=== PATIENT | female | born 1955 | race Caucasian/White ===

== ENCOUNTER → 2018-02-10 | Outpatient (CLI) | payer OTHER ==
[~2018-02-10] MED LIST: ADVAIR 500/501 EA INH; ALLEGRA ALLERG180 MG PO; ATORVASTATIN CA40 MG PO; BUMETANIDE1 MG PO; CALCIUM 600 +1 EACH PO; CEFUROXIME250 MG PO; CELEBREX200 MG PO; DOXYCYCLINE HY100 MG PO; FAMOTIDINE20 MG PO; FISH OIL 1,2001 EACH PO; FLONASE16 GM; GLIMEPIRIDE2 MG PO; HUMULIN N100 UNITS/ SQ; IOPAMIDOL 370 MG/ML 200 ML INFUS..BTL INJ ONE; IRBESARTAN-HCT1 EAC1 PO; IRBESARTAN300 MG PO; LEVOTHYROXINE88 MCG PO; LEXAPRO10 MG PO; METFORMIN HCL1000 MG PO; MONTELUKAST SOD10 MG PO; NEXIUM40 MG PO; NOVOLOG100 UNITS1 SQ; QVAR7.3 G1 INH; SODIUM CHLORIDE 0.9% 50ML 50 ML ONE; SULFAMETHOXAZO1 EAC1 PO; VERAPAMIL ER240 M1 PO; VICTOZA 3-0.6 MG/0.1 SQ; VITAMIN B-121000 MCG PO; VITAMIN D1000 UNI1 PO; XOLAIR150 MG SQ
[2018-02-10 08:51] LABS: BLOOD UREA NITROGEN 11 mg/dL (7-26); BUN/CREATININE RATIO 17 (6-25); CREATININE, SERUM 0.66 mg/dL (0.57-1.11); EST GLOMERULAR FILTRATION RATE > 60 ML/MIN (60-)
--- NOTE | 2018-02-10 15:07 | Diagnostic Imaging Report ---
History:Occlusion and stenosis, Comparison studies:None Technique: Axial images were obtained from the thoracic inlet. Coronal and sagittal images reconstructed from the axial data. Intravenous contrast: 100 cc of Omnipaque 300. Findings: Percentage of stenosis will be based on the NASCET criteria Aortic arch and major vessels: Patent. Nonstenotic atherosclerotic calcifications. Common origin of the brachiocephalic trunk and left common carotid artery.. Common carotid arteries: Nonstenotic atherosclerotic calcification at the bilateral common carotid arteries mid segments. Calcified and noncalcified atherosclerotic plaque at the left common carotid artery distal segment results in less than 30% stenosis. Right internal carotid artery: Patent. Calcified atherosclerotic plaque results in less than 30% stenosis at the bulb. Atherosclerotic calcifications of the carotid siphons with less than 10% stenosis Noncalcified plaque at the external carotid artery with less than 30% stenosis Left internal carotid artery: Patent. Calcified and noncalcified plaque at the bulb results in less than 30% stenosis. Atherosclerotic calcifications of the carotid siphons with less than 10% stenosis Noncalcified and calcified plaque at the origin of the external carotid artery with less than 30% stenosis. Right vertebral artery: Patent. Noncalcified plaque at the origin with less than 30% stenosis. Left vertebral artery: Patent. No abnormalities. Basilar artery: Patent. No abnormalities. Posterior cerebral arteries: Patent. No abnormalities. Anatomical variants: Acom: Patent . Pcoms: Not visualized. Vertebral arteries: Co-dominant. Facet and uncinate process hypertrophy at the mid cervical spine results in multilevel moderate foraminal narrowing without significant canal stenosis. Under pneumatization of the bilateral maxillary, ethmoid, frontal and left sphenoid sinuses with periosteal thickening secondary to chronic inflammation and functional endoscopic sinus surgery changes. IMPRESSION: Cervical CTA: 1. Atherosclerotic calcifications of the carotid and right vertebral arteries without hemodynamically significant stenosis. Intracranial CTA: 1. Atherosclerotic calcifications of the carotid siphons without hemodynamically significant stenosis. No other abnormality of the [place]. Signed by: DR Reynaldo Pastor M.D. on 02/10/2018 2:41 PM
== END ==
LOC: CT 07:57
PROVIDERS: ATTEND Psychiatry & Neurology Clinical Neurophysiology
DX: I65.23 Occlusion and stenosis of bilateral carotid arteries (principal)
CPT/HCPCS: 36415; 70496; 70498; 82565; 84520; Q9967

== ENCOUNTER 2018-05-30 11:06 | Inpatient (IN) | payer OTHER ==
[~2018-05-30] VITALS: Ht 157.5 cm; Wt 64.4 kg
[~2018-05-30 11:06] MED LIST changes: -IOPAMIDOL 370 MG/ML 200 ML INFUS..BTL INJ ONE; -SODIUM CHLORIDE 0.9% 50ML 50 ML ONE
--- OUTSIDE RECORDS SUMMARY | 2018-05-30 11:10 | XMS REPORT ---
[facility] Address Unknown Phone Unavailable Care Team Providers Care Automatic Seamer Name Role Phone HARRISON REYES Unavailable Unavailable Problems This patient has no known problems. Allergies, Adverse Reactions, Alerts This patient has no known allergies or adverse reactions. Medications This patient has no known medications. Results Test Description Test Time Test Comments Text Results Atomic Results Result Comments CTA NECK 2018-02-10 14:24:00 [place] [address] Patient Name: OLLIE IQBAL MR #: [id number] : 1955 Age/Sex: 62/F Req #: [id number] [facility] Physician: Ordered by: HARRISON REYES MD Report #: [id number] Location: CT Room/Bed: Procedure: [id number] CT/CTA NECK Exam Date: 02/10/18 Exam Time: 929 REPORT STATUS: Signed ADDENDUM #1 1. For optimization of of anatomic evaluation, multi-planar reconstructions, maximum intensity projections, and advanced 3D off-line post-processing was obtained and performed on a dedicated stand-alone workstation under the direct supervision of the interpreting physician. 2. Dose modulation, iterative reconstruction, and/or weight based adjustment of the mA/kV was utilized to reduce the radiation dose to as low as reasonably achievable. Signed by: DR Reynaldo Pastor M.D. on 03/17/2018 7:12 PM ORIGINAL REPORT History:Occlusion and stenosis, Comparison studies:None Technique: Axial images were obtained from the thoracic inlet. Coronal and sagittal images reconstructed from the axial data. Intravenous contrast: 100 cc of Omnipaque 300. Findings: Percentage of stenosis will be based on the NASCET criteria Aortic arch and major vessels: Patent. Nonstenotic atherosclerotic calcifications. Common origin of the brachiocephalic trunk and left common carotid artery.. Common carotid arteries: Nonstenotic atherosclerotic calcification at the bilateral common carotid arteries mid segments. Calcified and noncalcified atherosclerotic plaque at the left common carotid artery distal segment results in less than 30% stenosis. Right internal carotid artery: Patent. Calcified atherosclerotic plaque results in less than 30% stenosis at the bulb. Atherosclerotic calcifications of the carotid siphons with less than 10% stenosis Noncalcified plaque at the external carotid artery with less than 30% stenosis Left internal carotid artery: Patent. Calcified and noncalcified plaque at the bulb results in less than 30% stenosis. Atherosclerotic calcifications of the carotid siphons with less than 10% stenosis Noncalcified and calcified plaque at the origin of the external carotid artery with less than 30% stenosis. Right vertebral artery: Patent. Noncalcified plaque at the origin with less than 30% stenosis. Left vertebral artery: Patent. No abnormalities. Basilar artery: Patent. No abnormalities. Posterior cerebral arteries: Patent. No abnormalities. Anatomical variants: Acom: Patent . Pcoms: Not visualized. Vertebral arteries: Co-dominant. Facet and uncinate process hypertrophy at the mid cervical spine results in multilevel moderate foraminal narrowing without significant canal stenosis. Under pneumatization of the bilateral maxillary, ethmoid, frontal and left sphenoid sinuses with periosteal thickening secondary to chronic inflammation and functional endoscopic sinus surgery changes. IMPRESSION: Cervical CTA: 1. Atherosclerotic calcifications of the carotid and right vertebral arteries without hemodynamically significant stenosis. Intracranial CTA: 1. Atherosclerotic calcifications of the carotid siphons without hemodynamically significant stenosis. No other abnormality of the [place]. Signed by: DR Reynaldo Pastor M.D. on 02/10/2018 2:41 PM Dictated By: REYNALDO LAMBERT MD 191 Transcribed By: RA on 02/10/18 1441 COPY TO: HARRISON REYES MD CTA BRAIN 2018-02-10 14:24:00 [place] [address] Patient Name: OLLIE IQBAL MR #: [id number] : 1955 Age/Sex: 62/F Req #: [id number] Adm Physician: Ordered by: HARRISON REYES MD Report #: [id number] Location: CT Room/Bed: Procedure: [id number] CT/CTA BRAIN Exam Date: 02/10/18 Exam Time: 929 REPORT STATUS: Signed ADDENDUM #1 1. For optimization of of anatomic evaluation, multi-planar reconstructions, maximum intensity projections, and advanced 3D off-line post-processing was obtained and performed on a dedicated stand-alone workstation under the direct supervision of the interpreting physician. 2. Dose modulation, iterative reconstruction, and/or weight based adjustment of the mA/kV was utilized to reduce the radiation dose to as low as reasonably achievable. Signed by: DR Reynaldo Pastor M.D. on 03/17/2018 7:12 PM ORIGINAL REPORT History:Occlusion and stenosis, Comparison studies:None Technique: Axial images were obtained from the thoracic inlet. Coronal and sagittal images reconstructed from the axial data. Intravenous contrast: 100 cc of Omnipaque 300. Findings: Percentage of stenosis will be based on the NASCET criteria Aortic arch and major vessels: Patent. Nonstenotic atherosclerotic calcifications. Common origin of the brachiocephalic trunk and left common carotid artery.. Common carotid arteries: Nonstenotic atherosclerotic calcification at the bilateral common carotid arteries mid segments. Calcified and noncalcified atherosclerotic plaque at the left common carotid artery distal segment results in less than 30% stenosis. Right internal carotid artery: Patent. Calcified atherosclerotic plaque results in less than 30% stenosis at the bulb. Atherosclerotic calcifications of the carotid siphons with less than 10% stenosis Noncalcified plaque at the external carotid artery with less than 30% stenosis Left internal carotid artery: Patent. Calcified and noncalcified plaque at the bulb results in less than 30% stenosis. Atherosclerotic calcifications of the carotid siphons with less than 10% stenosis Noncalcified and calcified plaque at the origin of the external carotid artery with less than 30% stenosis. Right vertebral artery: Patent. Noncalcified plaque at the origin with less than 30% stenosis. Left vertebral artery: Patent. No abnormalities. Basilar artery: Patent. No abnormalities. Posterior cerebral arteries: Patent. No abnormalities. Anatomical variants: Acom: Patent . Pcoms: Not visualized. Vertebral arteries: Co-dominant. Facet and uncinate process hypertrophy at the mid cervical spine results in multilevel moderate foraminal narrowing without significant canal stenosis. Under pneumatization of the bilateral maxillary, ethmoid, frontal and left sphenoid sinuses with periosteal thickening secondary to chronic inflammation and functional endoscopic sinus surgery changes. IMPRESSION: Cervical CTA: 1. Atherosclerotic calcifications of the carotid and right vertebral arteries without hemodynamically significant stenosis. Intracranial CTA: 1. Atherosclerotic calcifications of the carotid siphons without hemodynamically significant stenosis. No other abnormality of the [place]. Signed by: DR Reynaldo Pastor M.D. on 02/10/2018 2:41 PM Dictated By: REYNALDO LAMBERT MD 1912 Transcribed By: RA on 02/10/18 1441 COPY TO: ERICHARRISON SILVA MD
--- OUTSIDE RECORDS SUMMARY | 2018-05-30 11:10 | XMS REPORT | Clinical Summary ---
Author Author [facility] Address Unknown Phone Unavailable Care Team Providers Care Curriculum Assistant Name Role Phone Dago Tapiaold Aiden PCP Allergies Not on File Medications Not on file Active Problems Not on file Social History Date Tobacco Use Types Packs/Day Years Used Never Assessed Sex Assigned at Date Recorded Not on file Industry Job Start Date Occupation Not on file Not on file Not on file Travel End Travel History Travel Start No recent travel history available. Last Filed Vital Signs Not on file Plan of Treatment Not on file Results Not on fileafter 05/29/2017 Insurance Payer Benefit Subscriber ID Type Phone Address Plan / Group [facility] PPO xxxxxxxxx PPO CARE POS CVCP ONLY [address] (Home) [place] [phone]
--- OUTSIDE RECORDS SUMMARY | 2018-05-30 11:10 | XMS REPORT | Continuity of Care Document ---
Author Author [facility] Organization Interface Address Unknown Phone Unavailable Problems Problem Status Onset Date Classification Date Reported Comments Source G93.2 - BENIGN INTRACRANIAL HYPERTENSI Active 11/23/2015 [facility] Medications Medication Details Route Status Patient Instructions Ordering Provider Order Date Source Allergies, Adverse Reactions, Alerts Substance Category Reaction Severity Reaction type Status Date Reported Comments Source Immunizations Immunization Date Given Site Status Last Updated Comments Source Results Order Name Results Value Reference Range Date Interpretation Comments Source Int Auditory Canal w/wo contrast MRI Int Auditory Canal w/wo contrast MRI EXAM: Int Auditory Canal w/wo contrast MRI DATE: 12/11/2017 3:16 PM CDT . ORDERING PHYSICIAN: Vinnie Vitale MD CLINICAL INDICATION: H90.5 Unspecified sensorineural hearing loss - H90.5 Unspecified sensorineural hearing loss; TECHNIQUE: Multisequence, multiplanar MRI of the brain with small [id number] images of the internal auditory canals obtained both prior to after the uneventful administration of 15 ml of Dotarem intravenous gadolinium. COMPARISON: 11/27/[address] FINDINGS: INTERNAL AUDITORY CANAL STUDY: There is no brainstem, cerebellar, or cerebellopontine angle mass lesion, mass effect, signal abnormality, or abnormal enhancement. The bilateral cranial nerve 7/8 complexes are normal. The fluid-filled structures of the inner ear including the cochlea, vestibule, and semicircular canals are normal in diameter and signal intensity. There is no abnormal enhancement. Incidentally imaged are normal cranial nerves V, IX, and X.The mastoid air cells are well developed and well aerated. BRAIN: BRAIN PARENCHYMA: There is no hemorrhage, mass lesion, extra axial collection, cerebral edema, or mass effect. Diffusion sequences are normal. There is mild generalized volume loss and chronic microvascular ischemia. There is no evidence of previous cortical ischemia or cortical abnormality otherwise. The cerebellar tonsils are above foramen magnum. There is a partial empty sella configuration. VENTRICLES/SULCI/CISTERNS: The ventricles are normal in size and configuration. The basal cisterns are patent. VISUALIZED VESSELS: Major intracranial flow voids are preserved. ORBITS, VISUALIZED PARANASAL SINUSES AND MASTOIDS: There is bilateral ethmoid mucosal thickening. The mastoid air cells are clear. No orbital pathology is seen. ENHANCEMENT: There is no abnormal enhancement. IMPRESSION: 1. Unremarkable magnetic resonance imaging of the internal auditory canals 2. Mild cerebral volume loss and chronic microvascular ischemia 3. Ethmoid sinus mucosal thickening 12/11/2017 - - Read by: Gregorio Russo MD Dictated Date/time: 12/11/17 18:55 Electronically Signed by: Gregorio Russo MD 12/11/17 19:00 FINAL REPORT BENITO Howe Abdomen complete w Pelvis US Abdomen complete w Pelvis US PROCEDURE: ABDOMEN ULTRASOUND CLINICAL INDICATION: R14.0. Abdominal distention. COMPARISON: None. TECHNIQUE: Grayscale and limited color sonographic evaluation of the abdomen was performed with standard technique. Static images are submitted. FINDINGS: LIVER: The visualized liver shows normal contour, size and morphology with normal echotexture. The maximal craniocaudad dimension of the liver measures approximately 16 cm. Hepatopedal flow is demonstrated in the main portal vein by spectral Doppler analysis. BILE DUCTS: The intrahepatic and extrahepatic bile ducts are not dilated with the visualized common bile duct measuring 0.38 cm. GALLBLADDER: There are no gallstones, gallbladder sludge, pericholecystic fluid or wall thickening. PANCREAS: The pancreas is partially obscured. The visualized pancreas is mildly prominent with likely diffuse fatty infiltration without additional demonstrable abnormality. There is no demonstrable pancreatic lesion, pancreatic ductal dilatation or peripancreatic fluid. SPLEEN: The spleen is unremarkable measuring 11.3 x 4.4 x 4.7 cm. KIDNEYS: There is normal renal contour and morphology with normal parenchymal echotexture. There is no hydronephrosis. The right kidney measures 10.7 x 4.6 x 4.5 cm. The left kidney measures 11.6 x 5.6 x 4.5 cm. AORTA AND INFERIOR VENA CAVA: Visualized portions appear unremarkable. ASCITES: There is no ascites. IMPRESSION: 1. The visualized pancreas is mildly prominent with likely diffuse fatty infiltration. 2. Otherwise unremarkable abdomen ultrasound. PROCEDURE: TRANSABDOMINAL PELVIS ULTRASOUND TECHNIQUE: Transabdominal ultrasound of the pelvis was performed with standard technique. Static images are submitted. FINDINGS: UTERUS: The uterus is anteflexed measuring 4.9 x 1.5 x 4.4 cm (length x AP x width). The maximal endometrial stripe thickness measures 0.1 cm. The patient is postmenopausal. There are uterine arcuate artery calcifications. There is no demonstrable uterine leiomyoma. The visualized portions of the cervix are unremarkable. OVARIES: The ovaries are not seen. There is no demonstrable adnexal mass. ADDITIONAL FINDINGS: The urinary bladder is distended and partially imaged without demonstrable abnormality. There is no demonstrable pelvic free fluid. IMPRESSION: 1. Uterine arcuate artery calcifications. 2. Nonvisualization of the ovaries. 3. Otherwise unremarkable transabdominal pelvis ultrasound. SL: 15 10/10/2016 - - Read by: Stephen Vaughn MD Dictated Date/time: 10/11/16 07:32 Electronically Signed by: Stephen Vaughn MD 10/11/16 07:47 FINAL REPORT IRVIN Lal Brain wo contrast CT Brain wo contrast CT EXAM: CT BRAIN WITHOUT CONTRAST INDICATION: R51 Headache COMPARISON: None TECHNIQUE: Routine axial CT images of the brain were obtained. DISCUSSION: No intracranial hemorrhage or mass effect. No acute infarction. No hydrocephalus. Microangiopathic changes and generalized parenchymal volume loss are evident. Calvarium is intact. Opacification of the bilateral maxillary sinuses. Opacification of a few anterior posterior ethmoidal air cells. Mastoid air cells are clear bilaterally. IMPRESSION: No acute intracranial abnormality. Microangiopathic changes and generalized parenchymal volume loss are present. Inflammatory paranasal sinus disease. 11/27/2015 - - Read by: Kyleigh Fairchild MD Dictated Date/time: 11/27/15 16:28 Electronically Signed by: Kyleigh Fairchild MD 11/27/15 16:31 FINAL REPORT [facility] Vital Signs Vital Sign Value Date Comments Source Encounters Location Location Details Encounter Type Encounter Number Reason For Visit Attending Provider ADM Date DC Date Status Source [facility] [place] [facility] [id number] Monty Hernandezton 11/27/2015 11/28/2015 IRVIN [facility] [place] [facility] [id number] Ethan Monroeon 10/10/2016 10/11/2016 BENITO BRYAN [facility] [place] [facility] [id number] Vinnie Vitale 12/11/2017 12/12/2017 IRVIN [place] Procedures Procedure Code Date Perfomer Comments Source
--- OUTSIDE RECORDS SUMMARY | 2018-05-30 11:10 | XMS REPORT | Summary of Care ---
Author Author [facility] Outpatient Imaging [facility] Outpatient Imaging [facility] Address Unknown Phone Unavailable Encounter HQ Lucindar_lynnpreet(ROBI) [id number] Date(s): 11/27/15 - 11/27/15 [facility] Outpatient Imaging [facility] [address] [facility], [address] [place], [place] [address] [phone] Discharge Disposition: Home Attending Physician: Monty Tapia MD Vital Signs No data available for this section Problem List No data available for this section Allergies, Adverse Reactions, Alerts No data available for this section Medications No data available for this section Results No data available for this section Immunizations No data available for this section Procedures No data available for this section Social History No data available for this section Assessment and Plan No data available for this section
--- OUTSIDE RECORDS SUMMARY | 2018-05-30 11:10 | XMS REPORT | Summary of Care ---
Author Author [facility] [place] Organization [facility] [place] Address Unknown Phone Unavailable Encounter HQ Encntr_alias(FIN) [id number] Date(s): 12/11/17 - 12/11/17 [facility] [place] [address] [place] [address]- [phone] Discharge Disposition: Home or Self Care Attending Physician: Vinnie Vitale MD Vital Signs No data available for [...]
--- OUTSIDE RECORDS SUMMARY | 2018-05-30 11:10 | XMS REPORT | Summary of Care ---
Author Author [facility] Outpatient Imaging [facility] [place] Address Unknown Phone Unavailable Encounter HQ Encntr_alias(FIN) [id number] Date(s): 10/10/16 - 10/10/16 [facility] Outpatient Imaging [place] [address] [place] [address], [address] [place], [place] [address]- [phone] Discharge Disposition: Home or Self Care Attending Physician: Ethan Sampson MD Vital Signs No data available for [...]
[2018-05-30 12:11] LABS: CLARITY,URINE CLEAR (CLEAR); COLOR,URINE YELLOW (YELLOW); LEUKOCYTE ESTERASE ,URINE NEGATIVE (NEGATIVE); NITRITE,URINE NEGATIVE (NEGATIVE); PROTEIN,URINE DIPSTICK NEGATIVE (NEGATIVE)
[2018-05-30 12:12] LABS: BILIRUBIN,URINE NEGATIVE (NEGATIVE); KETONES,URINE NEGATIVE (NEGATIVE); URINE UROBILINOGEN 0.2 mg/dL (0.2 - 1)
[2018-05-30 12:17] LABS: EPITHELIAL CELLS,URINE FEW /LPF; RBC,URINE 0-5 /HPF (0-5); WBC,URINE (MAN) 0-5 /HPF (0-5)
[2018-05-30] MEDS ORDERED: ACETAMINOPHEN 325 MG TAB PO ONE (12:30)
[2018-05-30] MEDS ORDERED: SODIUM CHLORIDE 0.9% 1000ML 1,000 ML IV SCH (12:30)
--- NOTE | 2018-05-30 12:36 | Diagnostic Imaging Report ---
EXAM: XR CHEST 2 VIEWS DATE: 05/30/2018 12:02 PM INDICATION: Sepsis/chills COMPARISON: None FINDINGS: Lines and Tubes: None Heart and Mediastinum: No acute cardiomediastinal findings. Lungs and Pleura: Minimal basilar opacities. Mild biapical scarring. Bones and Soft Tissues: No acute findings. IMPRESSION: 1. Basilar atelectasis versus pneumonia. Signed by: Dr. Juan Amado MD on 05/30/2018 12:33 PM
[2018-05-30] MEDS ORDERED: ACETAMINOPHEN 1000 MG/100 ML IV ONE (13:00)
[2018-05-30] MEDS: AZITHROMYCIN 500MG/NS 250 ML 250 ML IV SCH (13:00)
[2018-05-30 13:13] LABS: BASOPHILS % 0.2 % (0.0-1.0); EOSINOPHILS # (AUTO) 0.1 (0.0-0.4); EOSINOPHILS % 0.8 % (0.0-6.0); HEMATOCRIT 34.9 % (34.2-44.1); HEMOGLOBIN 10.8 g/dL (12.0-16.0); LYMPHOCYTES # (AUTO) 0.7 (1.0-3.2); LYMPHOCYTES % 6.1 % (18.0-39.1); MEAN CORPUSCULAR HEMOGLOBIN 28.6 pg (28-32); MEAN CORPUSCULAR HGB CONC 30.9 g/dL (31-35); MEAN CORPUSCULAR VOLUME 92.6 fL (81-99); MONOCYTES # (AUTO) 0.3 (0.2-0.8); MONOCYTES % 2.3 % (4.4-11.3); NEUTROPHILS # (AUTO) 10.5 (2.1-6.9); NEUTROPHILS % 89.9 % (38.7-80.0); PLATELET COUNT 216 x10e3/uL (140-360); RED BLOOD COUNT 3.77 x10e6/uL (3.6-5.1); RED CELL DISTRIBUTION WIDTH 15.3 % (11.7-14.4)
[2018-05-30 13:26] LABS: ALANINE AMINOTRANSFERASE 26 IU/L (0-55); ALBUMIN 3.6 g/dL (3.5-5.0); ALKALINE PHOSPHATASE 67 IU/L (40-150); ANION GAP 19.6 mmol/L (8-16); BLOOD UREA NITROGEN 14 mg/dL (7-26); BUN/CREATININE RATIO 19 (6-25); CALCIUM 9.5 mg/dL (8.4-10.2); CARBON DIOXIDE 18 mmol/L (22-29); CHLORIDE 102 mmol/L (98-107); CREATININE, SERUM 0.74 mg/dL (0.57-1.11); EST GLOMERULAR FILTRATION RATE > 60 ML/MIN (60-); GLUCOSE 201 mg/dL (74-118); POTASSIUM 4.6 mmol/L (3.5-5.1); SODIUM 135 mmol/L (136-145)
[2018-05-30 13:27] LABS: CREATINE KINASE 48 IU/L (29-168); MAGNESIUM 1.7 MG/DL (1.3-2.1)
[2018-05-30] MEDS ORDERED: SODIUM CHLORIDE 0.9% 1000ML 1,000 ML IV STA (13:36)
[2018-05-30 13:58] LABS: INR 0.92; PROTHROMBIN TIME 13.2 seconds (11.9-14.5)
[2018-05-30 13:59] LABS: PARTIAL THROMBOPLASTIN TIME 28.7 seconds (23.8-35.5)
[2018-05-30] MEDS ORDERED: VANCOMYCIN 1GM/NS 250 ML 250 ML IV ONE ×2 (14:15→19:00)
[2018-05-30] MEDS ORDERED: DEXTROSE 50% SYRINGE 50 ML IV PRN (14:15)
[2018-05-30] MEDS: ALBUTEROL SULF 0.083% NEB SOLN 3 ML NEB NEB SCH ×3 (14:18→23:25)
--- OUTSIDE RECORDS SUMMARY | 2018-05-30 14:31 | XMS REPORT | Clinical Summary ---
Author Author [facility] Address Unknown Phone Unavailable Care Team Providers Care Associate Partner Name Role Phone Dago Tapiaold Aiden PCP [...] ID Type Phone Address Plan / Group [facility] PPO xxxxxxxxx PPO CARE POS CVCP ONLY [address] (Home) [place] [phone]
[2018-05-30] MEDS: CEFEPIME HCL 2 GM VIAL IV SCH (14:52)
[2018-05-30] MEDS: SODIUM CHLORIDE 0.9% 1000ML 1,000 ML IV SCH ×2 (14:52→20:20)
[2018-05-30] MEDS: INSULIN LISPRO 100 UNIT/1 ML 3ML VIAL SQ SCH ×2 (16:30→21:00)
[2018-05-30 16:33] VITALS: BP 156/70
[2018-05-30 16:45] VITALS: BP 156/70
[2018-05-30 20:00] VITALS: BP 159/70
[2018-05-30 20:08] VITALS: BP 159/70
[2018-05-30] MEDS: METHYLPREDNISOLONE SOD SUCC 40 MG/ML VIAL IV SCH (20:09)
[2018-05-30] MEDS: IPRATROPIUM BROMIDE 0.02% 2.5 ML NEB NEB SCH ×2 (20:15→23:25)
[2018-05-30 21:40] LABS: CREATINE KINASE 41 IU/L (29-168)
[2018-05-31] VITALS (9 sets, daily range): BP systolic 145–184; BP diastolic 63–82
[2018-05-31] MEDS ORDERED: HYDRALAZINE HCL25 MG PO (00:44)
--- NOTE | 2018-05-31 00:44 | Consultation ---
DATE OF CONSULTATION: May 30, 2018 PULMONARY CONSULTATION REASON FOR CONSULTATION: Wheezing, chills and shortness of breath. HISTORY OF PRESENT ILLNESS: Ms. Blunt is a 62-year-old female. She has severe asthma and she is on Xolair as an outpatient. She sees an shale miner blasting Dr. Michell Ratliff. She reports that since early this morning, she started having severe chills which were not resolving, so she decided to come to the emergency room. Her grandson had some upper respiratory infection, which she thinks that she may have caught it. She was also having some symptoms of urinary tract infection. She was concerned that she may have urine infection as well. She denies any chest pain, nausea or vomiting. She has been wheezing since this morning. REVIEW OF SYSTEMS: GENERAL: Denies any fever. The patient was having chills. HEAD: Denies any head trauma. ENT: Denies any earache. CVS: Denies any chest pain. RESPIRATORY: Shortness of breath and wheezing. GI: Denies any nausea or vomiting. The rest of the review systems are negative except as in history of present illness. PAST MEDICAL HISTORY: Hypertension, diabetes and hyperlipidemia. PAST SURGICAL HISTORY: Unknown. FAMILY AND SOCIAL HISTORY: She does not smoke. She does not drink. She lives with her family. PHYSICAL EXAMINATION: VITAL SIGNS: Temperature 97.1, T-max of 101.6, pulse of 95, respiratory rate of 18, and O2 sat 97%. HEENT: Head atraumatic and normocephalic. NECK: Supple. CHEST: Wheezing bilaterally. HEART: S1, S2 audible. ABDOMEN: Soft, nontender and nondistended. EXTREMITIES: No clubbing, cyanosis or edema. NEUROLOGIC: Awake and alert. CHEST X-RAY: I have reviewed the images. It has possibly upper lobe pneumonia and maybe basilar opacities, but not very clear. LABORATORY DATA: Lactic acid was 35 in the emergency room, it came down to 11.2. Sodium 135, potassium 4.6, chloride 102, BUN 14, creatinine 0.74. Troponin was less [place] 0.001[place] [address], hemoglobin 10.8, and platelets 216. ASSESSMENT/PLAN: Ms. Blunt is a 62-year-old female with chills, fever of 101, and high lactic acid. CURRENT PROBLEMS: 1. Severe sepsis, source likely pneumonia. Urinalysis is negative. Blood cultures are pending. In the meantime, I will continue the patient on cefepime. She has received 1 dose of vancomycin. Agree with azithromycin as well. 2. Acute asthma exacerbation. The patient has history of severe asthma, on Xolair. I will start the patient on low-dose IV Solu-Medrol as the patient is wheezing. Continue the patient on nebulizer treatment. 3. Follow blood cultures. 4. Continue the patient on IV hydration for now because of sepsis. 5. Influenza was titer tested and it is negative. Thank you for this consult and report. Job#: [id number] JASPREET
[2018-05-31] MEDS: CEFEPIME HCL 2 GM VIAL IV SCH ×2 (02:15→15:03)
[2018-05-31] MEDS: ALBUTEROL SULF 0.083% NEB SOLN 3 ML NEB NEB SCH ×6 (03:00→23:05)
--- NOTE | 2018-05-31 06:06 | Diagnostic Imaging Report ---
EXAMINATION: CHEST SINGLE (PORTABLE) INDICATION: Pneumonia COMPARISON: 05/30/2018 FINDINGS: AP view TUBES and LINES: None. LUNGS: Lungs are well inflated. Stable minimal bibasilar opacities. There is no evidence of pulmonary edema. PLEURA: No pleural effusion or pneumothorax. HEART AND MEDIASTINUM: The cardiomediastinal silhouette is unremarkable. BONES AND SOFT TISSUES: No acute osseous lesion. Soft tissues are unremarkable. UPPER ABDOMEN: No free air under the diaphragm. IMPRESSION: Stable bibasilar opacities likely representing atelectasis. Developing pneumonia not excluded. Signed by: DR. Carlin Stuart MD on 05/31/2018 6:03 AM
[2018-05-31 06:15] LABS: BASOPHILS % 0.1 % (0.0-1.0); HEMATOCRIT 32.6 % (34.2-44.1); HEMOGLOBIN 10.1 g/dL (12.0-16.0); LYMPHOCYTES # (AUTO) 0.7 (1.0-3.2); LYMPHOCYTES % 7.1 % (18.0-39.1); MEAN CORPUSCULAR HEMOGLOBIN 29.2 pg (28-32); MEAN CORPUSCULAR VOLUME 94.2 fL (81-99); MONOCYTES # (AUTO) 0.2 (0.2-0.8); MONOCYTES % 1.5 % (4.4-11.3); NEUTROPHILS # (AUTO) 9.4 (2.1-6.9); NEUTROPHILS % 90.6 % (38.7-80.0); PLATELET COUNT 206 x10e3/uL (140-360); RED BLOOD COUNT 3.46 x10e6/uL (3.6-5.1); RED CELL DISTRIBUTION WIDTH 15.3 % (11.7-14.4)
[2018-05-31 06:35] LABS: ALANINE AMINOTRANSFERASE 17 IU/L (0-55); ALBUMIN/GLOBULIN RATIO 0.8 (0.8-2.0); ALKALINE PHOSPHATASE 57 IU/L (40-150); ANION GAP 16.4 mmol/L (8-16); BLOOD UREA NITROGEN 13 mg/dL (7-26); BUN/CREATININE RATIO 22 (6-25); CALCIUM 9.5 mg/dL (8.4-10.2); CARBON DIOXIDE 18 mmol/L (22-29); CHLORIDE 107 mmol/L (98-107); CREATININE, SERUM 0.58 mg/dL (0.57-1.11); EST GLOMERULAR FILTRATION RATE > 60 ML/MIN (60-); GLUCOSE 152 mg/dL (74-118); POTASSIUM 4.4 mmol/L (3.5-5.1); SODIUM 137 mmol/L (136-145)
[2018-05-31 06:49] LABS: CREATINE KINASE 33 IU/L (29-168)
[2018-05-31] MEDS: INSULIN LISPRO 100 UNIT/1 ML 3ML VIAL SQ SCH ×4 (07:30→20:47)
[2018-05-31] MEDS: SODIUM CHLORIDE 0.9% 1000ML 1,000 ML IV SCH ×3 (07:35→21:15)
[2018-05-31] MEDS: IPRATROPIUM BROMIDE 0.02% 2.5 ML NEB NEB SCH ×4 (07:45→23:05)
[2018-05-31] MEDS ORDERED: GUAIFENESIN/CODEINE 10 ML CUP PO PRN (08:15)
[2018-05-31] MEDS ORDERED: [UNRECOGNIZED DRUG - OTHER] (08:54)
[2018-05-31] MEDS ORDERED: CETIRIZINE HCL10 MG PO (08:54)
[2018-05-31] MEDS ORDERED: FAMOTIDINE20 MG PO (08:54)
[2018-05-31] MEDS ORDERED: TOBRADEX EYE O3.5 GM OP (08:54)
[2018-05-31] MEDS ORDERED: invokana PO (08:54)
[2018-05-31] MEDS: LEVOTHYROXINE SODIUM 88 MCG TAB PO SCH (09:00)
[2018-05-31] MEDS ORDERED: ESCITALOPRAM OXALATE 10 MG TAB PO SCH (09:00)
[2018-05-31] MEDS: Liraglutide (Victoza 3-Pak) 1.8 MG SC SCH (09:00)
[2018-05-31] MEDS: HYDRALAZINE HCL 25 MG TAB PO SCH ×2 (09:01→17:44)
[2018-05-31] MEDS: FLUTICASONE PROPIONATE NASAL SPRAY NS SCH ×2 (09:01→17:44)
[2018-05-31] MEDS: METHYLPREDNISOLONE SOD SUCC 40 MG/ML VIAL IV SCH ×2 (09:43→20:46)
[2018-05-31] MEDS: AZITHROMYCIN 500MG/NS 250 ML 250 ML IV SCH (09:43)
[2018-05-31 15:57] LABS: ANION GAP 16.5 mmol/L (8-16); BLOOD UREA NITROGEN 18 mg/dL (7-26); BUN/CREATININE RATIO 24 (6-25); CALCIUM 9.7 mg/dL (8.4-10.2); CARBON DIOXIDE 17 mmol/L (22-29); CHLORIDE 106 mmol/L (98-107); CREATININE, SERUM 0.74 mg/dL (0.57-1.11); EST GLOMERULAR FILTRATION RATE > 60 ML/MIN (60-); GLUCOSE 340 mg/dL (74-118); POTASSIUM 4.5 mmol/L (3.5-5.1); SODIUM 135 mmol/L (136-145)
[2018-05-31 16:12] LABS: % IRON SATURATION 4 % (15-50); IRON 14 ug/dL (50-170); TOTAL IRON BINDING CAPACITY 385 ug/dL (261-478); TRANSFERRIN 275 mg/dL (180-382)
--- NOTE | 2018-05-31 18:22 | History and Physical ---
CLINICAL HISTORY: This is a 62-year-old white woman, a patient of Dr. Monty Tapia, is admitted via the emergency room because of shortness of breath. She normally follows with Dr. Vinicio Anthony, supervisor grips, at the [facility]. She has abnormal EKG, was scheduled to have echocardiogram as well as dobutamine stress test. For the past 10 years, she has been treated with Xolair, which she states has gradually improved her life. Apparently, she developed shortness of breath starting at age 27, blamed on cigarettes smoking from second-hand exposure. She had no childhood asthma history. Recently, her grandson had upper respiratory tract infection. She may have contracted similar infection from him. She was also concerned she may have urinary tract infection. She was admitted and treated with bronchodilators and antibiotics. Pulmonary consultation has been obtained with Dr. López. PAST MEDICAL HISTORY: Remarkable for hypertension, diabetes, and hyperlipidemia. PAST SURGICAL HISTORY: Deferred. FAMILY HISTORY: Noncontributory. 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 She denies smoking or drinking. REVIEW OF SYSTEMS: Noncontributory. PHYSICAL EXAMINATION VITAL SIGNS: Stable except for a temperature of 101.6. CARDIOVASCULAR: Jugular veins were not distended. S1 and S2 were regular. There are no appreciable murmurs. RESPIRATORY: Shows expiratory wheezes. ABDOMEN: Soft. Bowel sounds are present. EXTREMITIES: No cyanosis, clubbing, or edema. LABORATORY STUDIES: Possible upper lobe pneumonia. Blood tests are white count 11,000, hemoglobin 10.8, and platelet count 216,000. BUN is 14 and creatinine 0.74. EKG showed ST segment depression, T-wave inversion in the inferolateral leads. IMPRESSION 1. Pneumonia, possible sepsis. 2. Rule out urinary tract infection. 3. History of chronic obstructive pulmonary disease blamed on secondhand smoke. 4. Abnormal ECG, possibly related to hypertension, consider coronary artery disease. Apparently, the patient was unable to do a stress test in the past and a dobutamine stress test is being planned. Echocardiogram was also being planned. 5. Diabetes. 6. Hypertension. 7. Hyperlipidemia. 8. Anemia, hemoglobin of 10.1. RECOMMENDATIONS: Pulmonary consultation with Dr. López. Bronchodilator therapy and antibiotics. Consider echocardiogram or dobutamine stress test, although she can do all these with her own supervisor grips, Dr. Vinicio Anthony, at the [facility]. Job#: [id number] [place] cc:DR. MONTY LÓPEZ
[2018-05-31] MEDS: SALMETEROL/FLUTICASONE 500/50 INH SCH (20:30)
[2018-05-31] MEDS: IRBESARTAN 150 MG TAB PO SCH (20:46)
[2018-06-01] VITALS: BP 158/70
[2018-06-01] MEDS: ALBUTEROL SULF 0.083% NEB SOLN 3 ML NEB NEB SCH ×6 (03:05→23:52)
[2018-06-01] MEDS: CEFEPIME HCL 2 GM VIAL IV SCH (03:20)
[2018-06-01 04:00] VITALS: BP 137/60
[2018-06-01] MEDS: SODIUM CHLORIDE 0.9% 1000ML 1,000 ML IV SCH (05:28)
[2018-06-01] MEDS: LEVOTHYROXINE SODIUM 88 MCG TAB PO SCH (05:28)
[2018-06-01] MEDS: IPRATROPIUM BROMIDE 0.02% 2.5 ML NEB NEB SCH ×4 (08:20→23:52)
[2018-06-01] MEDS: SALMETEROL/FLUTICASONE 500/50 INH SCH ×2 (08:32→19:43)
[2018-06-01 08:55] VITALS: BP 177/75
[2018-06-01] MEDS ORDERED: PNEUMOCOCCAL VACCINE POLYVALENT 23 MCG/0.5 ML VIAL IM NR (09:00)
[2018-06-01] MEDS: INSULIN LISPRO 100 UNIT/1 ML 3ML VIAL SQ SCH ×4 (09:21→20:45)
[2018-06-01] MEDS: FLUTICASONE PROPIONATE NASAL SPRAY NS SCH ×2 (09:21→17:49)
[2018-06-01] MEDS: HEPARIN SOD (PORCINE) 5,000 UNIT/ML VIAL SC SCH ×2 (09:21→21:00)
[2018-06-01] MEDS: AZITHROMYCIN 500MG/NS 250 ML 250 ML IV SCH (09:21)
[2018-06-01] MEDS: HYDRALAZINE HCL 25 MG TAB PO SCH ×2 (09:23→17:51)
[2018-06-01] MEDS: IRON SUCROSE 100 MG in SODIUM CHLORIDE 0.9% 100 ML 100 ML IV SCH (09:23)
[2018-06-01] MEDS: Liraglutide (Victoza 3-Pak) 1.8 MG SC SCH (09:40)
[2018-06-01 12:15] VITALS: BP 160/70
[2018-06-01 15:49] VITALS: BP 135/61
[2018-06-01 20:08] VITALS: BP 138/68
[2018-06-01] MEDS: IRBESARTAN 150 MG TAB PO SCH (20:59)
[2018-06-02 00:30] VITALS: BP 148/65
[2018-06-02] MEDS: SODIUM CHLORIDE 0.9% 1000ML 1,000 ML IV SCH (01:10)
[2018-06-02] MEDS: ALBUTEROL SULF 0.083% NEB SOLN 3 ML NEB NEB SCH ×3 (03:40→11:20)
[2018-06-02 04:00] VITALS: BP 175/80
[2018-06-02] MEDS: LEVOTHYROXINE SODIUM 88 MCG TAB PO SCH (06:03)
[2018-06-02] MEDS: IPRATROPIUM BROMIDE 0.02% 2.5 ML NEB NEB SCH (07:13)
[2018-06-02] MEDS: SALMETEROL/FLUTICASONE 500/50 INH SCH (07:26)
[2018-06-02] MEDS: INSULIN LISPRO 100 UNIT/1 ML 3ML VIAL SQ SCH (07:30)
[2018-06-02 08:05] VITALS: BP 168/64
[2018-06-02] MEDS: AZITHROMYCIN 500MG/NS 250 ML 250 ML IV SCH (08:48)
[2018-06-02] MEDS: FLUTICASONE PROPIONATE NASAL SPRAY NS SCH (08:48)
[2018-06-02] MEDS: HYDRALAZINE HCL 25 MG TAB PO SCH (08:48)
[2018-06-02] MEDS: Liraglutide (Victoza 3-Pak) 1.8 MG SC SCH (08:51)
[2018-06-02] MEDS: HEPARIN SOD (PORCINE) 5,000 UNIT/ML VIAL SC SCH (08:51)
[2018-06-02] MEDS ORDERED: CEFUROXIME250 MG PO (09:28)
[2018-06-02] MEDS: IRON SUCROSE 100 MG in SODIUM CHLORIDE 0.9% 100 ML 100 ML IV SCH (10:00)
[2018-06-02 10:52] VITALS: BP 168/64
--- NOTE | 2018-06-02 11:32 | Cardiology Report ---
DATE OF STUDY: ECHOCARDIOGRAM ATTENDING PHYSICIAN: Dr. Monty Rivera M-MODE: Normal chamber and wall dimensions. Normal contractility. Normal mitral aortic valves. No pericardial effusion. SECTOR SCAN: Normal chamber sizes. Borderline left ventricular hypertrophy. Normal contractility. Moderate aortic sclerosis. Normal mitral and tricuspid valves. No pericardial effusion. CARDIAC DOPPLER STUDY WITH COLOR: Trace mitral regurgitation. No significant aortic stenosis. CONCLUSIONS 1. Borderline left ventricular hypertrophy with ejection fraction of approximately 55%. 2. Trace mitral regurgitation, probably not clinically significant. Job#: [id number] VAS cc:MONTY RIVERA MD
[2018-06-02 12:05] VITALS: BP 144/57
--- NOTE | 2018-06-02 14:17 | Discharge Summary ---
DISCHARGE DIAGNOSES 1. Community-acquired pneumonia. 2. Type-2 diabetes mellitus. 3. History of chronic obstructive pulmonary disease. 4. Hypertension, controlled. HISTORY OF PRESENT ILLNESS: Ms. Blunt is a 62-year-old lady who is known to me from the office, who has past medical history significant for hypertension, type-2 diabetes mellitus, hyperlipidemia and hypertension. She also has history of bronchospasm thought to be secondary to secondhand COPD. She presented to the emergency department last Friday complaining of increasing dyspnea in addition to a productive cough, sore throat, nasal congestion, and some subjective fever. Initial chest x-ray taken in the emergency department was suggestive for some degree of bilateral basal atelectasis. On admission, her temperature was 101.6. She had a white cell count of 11,700. Hemoglobin level was 10.8. She was admitted to the hospital. She was started on a combination of third-generation cephalosporin and Zithromax. She was continued on her usual home medications and supplemental oxygen. Samples were taken for sputum culture as well as throat culture, which were both reported as normal respiratory simon. The patient has improved on the combination antibiotic therapy. She became afebrile. Her white count has normalized. She is being discharged home in stable condition with a prescription for cephalexin and Mexitil 250 mg twice a day. She is to follow up in the office 1 week after discharge. SCAR RIVERA MD Job#: [id number]
== END 2018-06-02 13:15 | disposition home or self-care (01) | DRG 871 ==
LOC: ER 11:06 → ERHOLD 13:56 → MED/SURG 15:07
PROVIDERS: ADMIT Internal Medicine; ATTEND Internal Medicine
DX: A41.9 Sepsis, unspecified organism (principal); J13 Pneumonia due to Streptococcus pneumoniae; J44.0 Chronic obstructive pulmonary disease with (acute) lower respiratory infection; J44.1 Chronic obstructive pulmonary disease with (acute) exacerbation; J45.901 Unspecified asthma with (acute) exacerbation; R65.20 Severe sepsis without septic shock; I10 Essential (primary) hypertension; E11.9 Type 2 diabetes mellitus without complications; E78.5 Hyperlipidemia, unspecified; Z77.22 Contact with and (suspected) exposure to environmental tobacco smoke (acute) (chronic); D64.9 Anemia, unspecified
CPT/HCPCS: 36415; 71045; 71046; 80048; 80053; 81001; 82270; 82550; 82553; 82948; 83518; 83540; 83605; 83735; 84466; 84484; 85025; 85610; 85730; 87040; 87070; 87086; 87205; 87400; 90732; 93005; 93306; 94640; 96372; 99284; J0456; J0692; J1644; J1756; J2920; J3370; J7030

== ENCOUNTER 2019-09-16 10:00 | Outpatient (RCR) | payer OTHER ==
[~2019-09-16 10:00] MED LIST changes: +CETIRIZINE HCL10 MG PO; +HYDRALAZINE HCL25 MG PO; +TOBRADEX EYE O3.5 GM OP; +[UNRECOGNIZED DRUG - OTHER]; +invokana PO
== END 2019-09-18 ==
LOC: PT 10:00
PROVIDERS: ATTEND Specialist
DX: M76.62 Achilles tendinitis, left leg (principal); M25.572 Pain in left ankle and joints of left foot; M25.672 Stiffness of left ankle, not elsewhere classified; M25.472 Effusion, left ankle; M62.81 Muscle weakness (generalized)

== ENCOUNTER 2019-09-28 16:00 | Outpatient (RCR) | payer MEDICARE, OTHER | END 2019-10-19 | LOC: PT 16:00 | PROVIDERS: ATTEND Specialist | DX: M76.62 Achilles tendinitis, left leg (principal) | CPT/HCPCS: 97139 ==